=== PATIENT | female | born 2000 ===

== ENCOUNTER 2022-08-11 13:45 | Emergency (ER) | payer MEDICAID, OTHER ==
[~2022-08-11] VITALS: Ht 162.6 cm; Wt 100.0 kg
[2022-08-11 14:24] LABS: Basophils # (auto) 0 10 ^3/uL (0-0.2); Basophils % (auto) 0.3 % (0.0-2.0); Eosinophils # (auto) 0.1 10 ^3/uL (0-0.8); Monocytes # (auto) 0.6 10 ^3/uL (0-1.3); Monocytes % (auto) 5.1 % (0.0-12.0); White Blood Cell 11.1 10^3/uL (4.4-10.8)
[2022-08-11 14:25] LABS: Eosinophils % (auto) 0.8 % (0.0-7.0); Hematocrit 43.7 % (36.0-46.0); Lymphocytes # (auto) 1.8 10 ^3/uL (0.4-5.4); Lymphocytes % (auto) 16.6 % (10.0-50.0); Mean Corpuscular Hemoglobin 24.8 pg (28.0-32.0); Mean Corpuscular Hgb Conc. 32.1 g/dL (32.0-36.0); Mean Corpuscular Volume 77.4 fL (80.0-100.0); Neutrophils # (auto) 8.6 10 ^3/uL (1.6-8.6); Neutrophils % (auto) 77.2 % (37.0-80.0); Nucleated Red Blood Cells % 0.4 %; Red Blood Cells 5.64 10^6/uL (4.0-5.20); Red Cell Distribution Width 16.1 % (11.8-14.3)
[2022-08-11 14:38] LABS: Albumin 3.7 g/dL (3.4-5.0); BUN/Creatinine Ratio 14.8; Potassium 4.1 mmol/L (3.5-5.1)
[2022-08-11 14:41] LABS: Bilirubin, Total 0.4 mg/dL (0.2-1.0); Total Protein 7.1 g/dL (6.4-8.2)
[2022-08-11] MEDS ORDERED: METOCLOPRAMIDE HCL 10 MG TAB PO ONE (15:15)
[2022-08-11] MEDS: ACETAMINOPHEN 325 MG TAB PO ONE ×2 (15:15→16:58)
[2022-08-11] MEDS ORDERED: DexAMETHasone 4 MG TAB PO ONE (15:15)
[2022-08-11] MEDS ORDERED: diphenhdrAMINE HCL 25 MG CAP PO ONE (15:15)
[2022-08-11] MEDS ORDERED: IBUPROFEN 400 MG TAB PO ONE (17:15)
[2022-08-11 17:37] VITALS: BP 115/58
== END 2022-08-11 17:38 | disposition home or self-care (01) ==
LOC: EDBD 13:45 → ER 13:45
DX: R55 Syncope and collapse (principal)
CPT/HCPCS: 36415; 80053; 81025; 83735; 84484; 85025; 85379; 93005; 99284; J8540; J8597